=== PATIENT | female | born 1970 | race American Indian/Alaskan Native ===

== ENCOUNTER 2021-07-19 11:33 | Emergency (ER) | payer BC ==
[~2021-07-19] VITALS: Ht 152.4 cm; Wt 67.1 kg
[2021-07-19 12:34] VITALS: BP_SYST 177
--- NOTE | 2021-07-19 12:43 | NUR ---
TRIAGED PT IN TRIAGE ROOM, ADV PT TO RTRN TO WAITING ROOM, WAITING ON A ROOM PLACEMENT. PROVIDED CUP FOR URINE SAMPLE
--- NOTE | 2021-07-19 15:49 | NUR ---
ER at bedside examining patient.
--- NOTE | 2021-07-19 15:49 | NUR ---
Patient presents to ER with neck pain for the last 2 weeks. states it starrted one morning and has been on and off for 2 weeks. pain radiates to top of head where she feels a "water dropping" on her forehead. Respiratory WNL. pulses are regular and even. skin intact. no other complaints.
--- NOTE | 2021-07-19 16:13 | NUR ---
Patient given written and verbal discharge instructions and verbalizes understanding. ER MD discussed with patient the results and treatment provided. Patient in stable condition. ID arm band removed. Patient educated on pain management and to follow up with PMD. Pain Scale . Opportunity for questions provided and answered. Medication side effect fact sheet provided.
[2021-07-19 16:14] VITALS: BP_SYST 186
== END 2021-07-19 16:14 | disposition home or self-care (01) ==
LOC: SED 11:33
DX: S16.1XXA Strain of muscle, fascia and tendon at neck level, initial encounter (principal); R51.9 Headache, unspecified; I10 Essential (primary) hypertension; X58.XXXA Exposure to other specified factors, initial encounter; Y93.89 Activity, other specified; Y92.89 Other specified places as the place of occurrence of the external cause; Y99.8 Other external cause status
CPT/HCPCS: 99281